=== PATIENT | female | born 1990 | race Caucasian/White ===

== ENCOUNTER 2018-04-07 22:43 | Emergency (ER) | payer MEDICAID ==
[~2018-04-07] VITALS: Ht 165.1 cm; Wt 77.2 kg
[2018-04-07 22:46] VITALS: BP 116/78
[2018-04-07] MEDS ORDERED: dexamethasone 0.5 mg/5ml unit-dose oral solution PO STA (23:15)
[2018-04-07] MEDS ORDERED: dexamethasone 4mg tablet PO STA (23:31)
[2018-04-07] MEDS ORDERED: ipratropium/albuterol 3ml nebule NEB STA (23:37)
[2018-04-08] MEDS ORDERED: DEC4T PO (00:26)
[2018-04-08] MEDS ORDERED: FLUT1DIS INH (00:30)
[2018-04-08] MEDS ORDERED: ipratropium/albuterol 3ml nebule NEB SCH (03:00)
== END 2018-04-08 00:50 | disposition home or self-care (01) ==
LOC: ER 22:45
DX: J45.909 Unspecified asthma, uncomplicated (principal); J06.9 Acute upper respiratory infection, unspecified
CPT/HCPCS: 94640; 94760; 99283; J8540